=== PATIENT | female | born 1975 | race Caucasian/White ===

== ENCOUNTER 2016-09-13 23:11 | Emergency (ER) | payer OTHER ==
[~2016-09-13] VITALS: Ht 162.6 cm; Wt 117.9 kg
[~2016-09-13 23:11] MED LIST: ACYCLOVIR400 MG PO; ALAVERT10 MG PO; ALBUTEROL17 GM IH; ALLEGRA180 MG PO; ALLEGRA60 MG PO; ALLERGY MEDICAT25 M1 PO; AMBIEN10 M1 PO; AMBIEN10 MG PO; ASPIR 8181 M1 PO; ATARAX,VISTARIL50 MG PO; ATIVAN1 MG PO; AUGMENTIN875 MG PO; AZELASTINE205.5 MCG/ BOTH NARES; BENADRYL25 MG PO; BUSPAR10 MG PO; BUSPAR5 MG PO; CIPRO500 MG PO; CYCLOBENZAPRINE10 MG PO; Cipro PO; DENAVIR1.5 GM PO; DESYREL100 MG PO; DILAUDID4 MG PO; DOXYCYCLINE HY100 M3 PO; DOXYCYCLINE HY100 MG PO; EPI-PEN; EPIPEN ADU0.3 MG/0.3 IM; ESTRACE1 MG PO; ESTRADIOL1 MG PO; FENOFIBRATE160 M1 PO; FENOFIBRATE54 M1 PO; FIORICET WI1 CAPSULE PO; FLEXERIL10 MG PO; FLEXERIL5 MG PO; FLOVENT 11120 INHALA IH; FLOVENT 22120 INHALA IH; FUROSEMIDE20 MG PO; Flagyl PO; GLIPIZIDE5 M1 PO; HYDROCHLOROTH12.5 M3 PO; IMITREX100 MG PO; JANUVIA100 MG PO; K-DUR10 MEQ PO; KLONOPIN0.5 M1 PO; KLONOPIN1 M1 PO; KLOR-CON 1010 ME1 PO; LEVAQUIN750 MG PO; LIPITOR40 MG PO; LISINOPRIL10 MG PO; LORAZEPAM1 MG PO; MACROBID100 MG PO; MACRODANTIN50 MG PO; METFORMIN HCL500 MG PO; METRONIDAZOLE45 G1 TP; MICROZIDE12.5 M1 PO; MILLIPRED5 MG PO; MOBIC15 MG PO; MONTELUKAST SOD10 MG PO; MOTRIN800 MG PO; NAPROSYN500 MG PO; NAPROXEN500 MG PO; NASACORT; NASONEX17 GM BOTH NARES; OMEPRAZOLE20 M3 PO; ONDANSETRON HCL8 MG PO; OXYCODONE HCL15 MG PO; OXYCONTIN10 MG PO; PERCOCET 5/31 TABLET PO; PERIACTIN4 MG PO; PHENERGAN12.5 M1 PO; PHENERGAN25 MG PO; PHENERGAN25 MG PR; PREDNISONE20 MG PO; PREDNISONE5 M1 PO; PREDNISONE50 MG PO; PRILOSEC40 MG PO; PRISTIQ50 MG PO; PROAIR HFA8.5 GM IH; PROMETHAZINE HC25 M1 PO; PROMETHAZINE HC50 M1 PO; PROVENTIL2.5 MG/3 M IH; Pristiq PO; QUETIAPINE FUM200 MG PO; REGLAN10 MG PO; RESTORIL15 MG PO; ROBAXIN750 MG PO; ROXICODONE5 MG PO; SEROQUEL200 MG PO; SEROQUEL50 MG PO; SINGULAIR10 MG PO; STADOL NASAL2.5 ML NS; TALADINE150 MG PO; TEMAZEPAM15 MG PO; TOPAMAX100 MG PO; TOPAMAX25 MG PO; TOPAMAX50 MG PO; TOPIRAMATE50 MG PO; TORADOL10 MG PO; TRADJENTA5 MG PO; TRAMADOL HCL50 MG PO; TRAZODONE HCL100 MG PO; TRAZODONE HCL150 MG PO; TYLENOL WITH C1 EACH PO; VENTOLIN HFA18 GM IH; VOLTAREN 1% GE100 GM TP; VOLTAREN50 MG PO; XYZAL5 MG PO; ZADITOR5 ML BOTH EYES; ZANTAC150 MG PO; ZITHROMAX Z-PA250 MG PO; ZOFRAN4 MG PO; ZOFRAN8 M1 PO; ZOVIRAX400 MG PO; ZYRTEC10 MG PO; [UNRECOGNIZED DRUG - OTHER]
[2016-09-14 01:00] LABS: HEMATOCRIT 37.3 % (36.0-46.0); MCH 27.3 PG (29.0-34.0); MCV 82.7 FL (83-99); MEAN PLAT.VOLUME 10.4 uM^3 (9.5-12.4); PLATELET COUNT 258 K/uL (156-360); RBC DIS.WIDTH-CV 14.3 % (11.8-14.6); RBC DIS.WIDTH-SD 41.8 % (39-53); RED BLOOD COUNT 4.51 M/uL (3.80-5.20); WHITE BLOOD COUNT 7.6 K/uL (4.1-10.2)
[2016-09-14 01:11] LABS: CHLORIDE 107 mEq/L (99-109); POTASSIUM 3.6 mEq/L (3.7-5.4); SODIUM 138 mEq/L (136-147)
[2016-09-14 01:13] LABS: GLUCOSE 115 mg/dL (70-99)
[2016-09-14 01:15] LABS: ANION GAP 11 MEQ/L (2-14); TOTAL BILIRUBIN 0.3 mg/dL (0.0-1.0)
[2016-09-14 01:17] LABS: ALKALINE PHOSPHATASE 134 IU/L (3-129); GFR ESTIMATE (CALCULATED) > 59 mL/min/
[2016-09-14 01:18] LABS: UREA NITROGEN (BUN) 11 mg/dL (9-23)
[2016-09-14 01:19] LABS: DIRECT BILIRUBIN 0.1 mg/dL (0.0-0.3)
[2016-09-14 01:20] LABS: LIPASE 26 U/L (1.0-51.0)
[2016-09-14 01:20] LABS: TROP-I INTERPRETATION NEGATIVE; TROPONIN-I < 0.01 ng/mL (0.0-0.30)
[2016-09-14 03:10] LABS: ADD MIUA? YES; BILIRUBIN NEGATIVE; BLOOD NEGATIVE; COLOR YELLOW ((YELLOW)); GLUCOSE (STRIP) NEGATIVE; KETONES NEGATIVE; LEUKOCYTES MODERATE; NITRITE NEGATIVE; PROTEIN (STRIP) NEGATIVE; SPECIFIC GRAVITY 1.023 (1.000-1.030); UROBILINOGEN 0.2 MG/DL (0.2-1.0)
[2016-09-14 03:28] LABS: AMPHETAMINE NEGATIVE (500 ng/mL); BARBITURATES NEGATIVE (200 ng/mL); BENZODIAZEPINES PRESUMPTIVE POSITIVE (150 ng/mL); COCAINE NEGATIVE (150 ng/mL); INTERNAL CONTROLS VALID? YES; METHADONE NEGATIVE (200 ng/mL); METHAMPHETAMINE NEGATIVE (500 ng/mL); OPIATES (MORPHINE) NEGATIVE (100 ng/mL); OXYCODONE PRESUMPTIVE POSITIVE (100 ng/mL); PHENCYCLIDINE NEGATIVE (25 ng/mL); PROPOXYPHENE NEGATIVE (300 ng/mL); THC CANNABINOIDS NEGATIVE (50 ng/mL); TRICYCLIC ANTIDEPRESSANTS PRESUMPTIVE POSITIVE (300 ng/mL)
[2016-09-14 03:29] LABS: ADD MEDTOX COMMENT Y
[2016-09-14 03:41] LABS: BACTERIA 1+; CASTS NONE SEEN /LPF; CRYSTALS PRESENT; EPITHELIAL CELLS 1+; MUCUS NONE SEEN; RED BLOOD CELLS NONE SEEN /HPF (0-5); UCUL ADDED? NO; WHITE BLOOD CELLS 0-5 /HPF (0-5)
[2016-09-14 03:42] LABS: AMORPHOUS PHOSPHATE CRYSTALS 2+
[2016-09-14 04:36] LABS: BENZODIAZEPINES, URINE SCREEN POSITIVE (200 ng/mL)
[2016-09-14] MEDS ORDERED: PEPCID20 MG PO (04:37)
[2016-09-14 05:03] VITALS: BP 95/44
== END 2016-09-14 05:07 | disposition home or self-care (01) ==
LOC: EME 23:11
PROVIDERS: Emergency Medicine
DX: M54.5 Low back pain (principal); G89.29 Other chronic pain; K92.2 Gastrointestinal hemorrhage, unspecified; V49.40XD Driver injured in collision with unspecified motor vehicles in traffic accident, subsequent encounter; E11.9 Type 2 diabetes mellitus without complications; E78.5 Hyperlipidemia, unspecified; I10 Essential (primary) hypertension; Z88.2 Allergy status to sulfonamides; Z88.6 Allergy status to analgesic agent; Z88.1 Allergy status to other antibiotic agents
CPT/HCPCS: 72125; 72131; 74177; 80048; 80076; 81003; 83605; 83690; 83880; 84484; 84999; 85027; 85610; 85730; 86850; 86900; 86901; 93005; 99281; 99285; J1885; J7030; S0028

== ENCOUNTER 2016-10-04 20:39 | Observation (INO) | payer OTHER ==
[~2016-10-04] VITALS: Ht 162.6 cm; Wt 115.4 kg
[~2016-10-04 20:39] MED LIST changes: +PEPCID20 MG PO
[2016-10-04 21:15] LABS: HEMATOCRIT 35.5 % (36.0-46.0); MCH 26.9 PG (29.0-34.0); MCHC 32.7 G/DL (30.0-36.0); MCV 82.4 FL (83-99); MEAN PLAT.VOLUME 9.7 uM^3 (9.5-12.4); PLATELET COUNT 262 K/uL (156-360); RBC DIS.WIDTH-CV 13.1 % (11.8-14.6); RBC DIS.WIDTH-SD 38.4 % (39-53); RED BLOOD COUNT 4.31 M/uL (3.80-5.20); WHITE BLOOD COUNT 8.6 K/uL (4.1-10.2)
[2016-10-04 21:29] LABS: CHLORIDE 101 mEq/L (99-109); POTASSIUM 3.9 mEq/L (3.7-5.4); SODIUM 139 mEq/L (136-147)
[2016-10-04 21:30] LABS: GLUCOSE 140 mg/dL (70-99)
[2016-10-04 21:32] LABS: ANION GAP 9 MEQ/L (2-14)
[2016-10-04 21:34] LABS: GFR ESTIMATE (CALCULATED) > 59 mL/min/
[2016-10-04 21:35] LABS: UREA NITROGEN (BUN) 8 mg/dL (9-23)
[2016-10-04 21:37] LABS: LIPASE 11 U/L (1.0-51.0)
[2016-10-04 21:39] LABS: TROP-I INTERPRETATION NEGATIVE; TROPONIN-I 0.13 ng/mL (0.0-0.30)
[2016-10-04] MEDS ORDERED: TRAZODONE HCL150 MG PO (23:16)
[2016-10-04] MEDS ORDERED: SEROQUEL300 MG PO (23:16)
[2016-10-04] MEDS ORDERED: FUROSEMIDE40 MG PO (23:18)
[2016-10-04] MEDS ORDERED: ONDANSETRON ODT8 MG PO (23:19)
[2016-10-04] MEDS ORDERED: LYRICA100 MG PO (23:21)
[2016-10-04] MEDS ORDERED: DULOXETINE HCL60 MG PO (23:21)
[2016-10-04] MEDS ORDERED: CEFTIN500 MG PO (23:21)
[2016-10-04] MEDS ORDERED: HYDROMORPHONE HC4 MG PO (23:22)
[2016-10-04] MEDS ORDERED: MELOXICAM15 MG PO (23:22)
[2016-10-04] MEDS ORDERED: DIAZEPAM5 MG PO (23:23)
[2016-10-05 02:38] VITALS: BP 153/99
[2016-10-05 06:46] LABS: TROP-I INTERPRETATION NEGATIVE
[2016-10-05 12:11] LABS: POINT-OF-CARE METER ID UU14162513
[2016-10-05 12:22] VITALS: BP 115/60
[2016-10-05 13:00] LABS: TROP-I INTERPRETATION NEGATIVE; TROPONIN-I 0.08 ng/mL (0.0-0.30)
== END 2016-10-05 16:30 | disposition home or self-care (01) ==
LOC: EME → EDBD 20:39 → EME 20:39 → EDOF 10-05 00:34 → 5WEST 10-05 02:15
PROVIDERS: Hospitalist
DX: R51 Headache (principal); R10.84 Generalized abdominal pain; R11.2 Nausea with vomiting, unspecified; R07.89 Other chest pain; E11.9 Type 2 diabetes mellitus without complications; I10 Essential (primary) hypertension; E78.5 Hyperlipidemia, unspecified; K21.9 Gastro-esophageal reflux disease without esophagitis; G40.909 Epilepsy, unspecified, not intractable, without status epilepticus; G89.4 Chronic pain syndrome; F11.10 Opioid abuse, uncomplicated; E66.01 Morbid (severe) obesity due to excess calories; Z68.41 Body mass index [BMI] 40.0-44.9, adult
CPT/HCPCS: 70450; 71020; 74176; 80048; 82948; 83690; 84484; 85027; 93005; 99281; 99285; G0378; J1815; J2310; J2405; J3010; J7030

== ENCOUNTER 2017-02-26 05:30 | Emergency (ER) | payer OTHER ==
[~2017-02-26] VITALS: Ht 162.6 cm; Wt 112.0 kg
[~2017-02-26 05:30] MED LIST changes: +CEFTIN500 MG PO; +DIAZEPAM5 MG PO; +DULOXETINE HCL60 MG PO; +FUROSEMIDE40 MG PO; +HYDROMORPHONE HC4 MG PO; +LYRICA100 MG PO; +MELOXICAM15 MG PO; +ONDANSETRON ODT8 MG PO; +SEROQUEL300 MG PO
[2017-02-26 07:24] LABS: HEMATOCRIT 38.9 % (36.0-46.0); MCH 26.3 PG (29.0-34.0); MCHC 31.9 G/DL (30.0-36.0); MCV 82.6 FL (83-99); MEAN PLAT.VOLUME 9.9 uM^3 (9.5-12.4); PLATELET COUNT 256 K/uL (156-360); RBC DIS.WIDTH-CV 13.2 % (11.8-14.6); RBC DIS.WIDTH-SD 39.2 % (39-53); RED BLOOD COUNT 4.71 M/uL (3.80-5.20)
[2017-02-26 07:42] LABS: CHLORIDE 106 mEq/L (99-109); POTASSIUM 3.3 mEq/L (3.7-5.4); SODIUM 140 mEq/L (136-147)
[2017-02-26 07:44] LABS: GLUCOSE 122 mg/dL (70-99)
[2017-02-26 07:46] LABS: ANION GAP 10 MEQ/L (2-14); TOTAL BILIRUBIN 0.4 mg/dL (0.0-1.0)
[2017-02-26 07:48] LABS: ALKALINE PHOSPHATASE 135 IU/L (3-129); GFR ESTIMATE (CALCULATED) > 59 mL/min/
[2017-02-26 07:49] LABS: UREA NITROGEN (BUN) 6 mg/dL (9-23)
[2017-02-26 08:25] LABS: LIPASE 26 U/L (1.0-51.0)
[2017-02-26 09:54] LABS: ADD MIUA? YES; BILIRUBIN NEGATIVE; BLOOD NEGATIVE; COLOR YELLOW ((YELLOW)); GLUCOSE (STRIP) NEGATIVE; KETONES NEGATIVE; LEUKOCYTES NEGATIVE; NITRITE NEGATIVE; PROTEIN (STRIP) NEGATIVE; SPECIFIC GRAVITY 1.008 (1.000-1.030); UROBILINOGEN 0.2 MG/DL (0.2-1.0)
[2017-02-26 09:57] LABS: BACTERIA NONE SEEN /HPF; EPITHELIAL CELLS 1+ /HPF; MUCUS TRACE /LPF; RED BLOOD CELLS 0-5 /HPF (0-5); UCUL ADDED? NO; WHITE BLOOD CELLS 0-5 /HPF (0-5)
[2017-02-26 10:04] LABS: ADD MEDTOX COMMENT Y; AMPHETAMINE NEGATIVE (500 ng/mL); BARBITURATES NEGATIVE (200 ng/mL); BENZODIAZEPINES PRESUMPTIVE POSITIVE (150 ng/mL); COCAINE NEGATIVE (150 ng/mL); INTERNAL CONTROLS VALID? YES; METHADONE NEGATIVE (200 ng/mL); METHAMPHETAMINE NEGATIVE (500 ng/mL); OPIATES (MORPHINE) NEGATIVE (100 ng/mL); OXYCODONE NEGATIVE (100 ng/mL); PHENCYCLIDINE NEGATIVE (25 ng/mL); PROPOXYPHENE NEGATIVE (300 ng/mL); THC CANNABINOIDS NEGATIVE (50 ng/mL); TRICYCLIC ANTIDEPRESSANTS NEGATIVE (300 ng/mL)
[2017-02-26] MEDS ORDERED: ZOFRAN4 MG PO (10:13)
[2017-02-26 10:51] LABS: BENZODIAZEPINES, URINE SCREEN POSITIVE (200 ng/mL)
[2017-02-26 10:54] VITALS: BP 118/71
== END 2017-02-26 11:00 | disposition home or self-care (01) ==
LOC: EME 05:30
PROVIDERS: Emergency Medicine
DX: R10.13 Epigastric pain (principal); R11.2 Nausea with vomiting, unspecified; R19.7 Diarrhea, unspecified; I10 Essential (primary) hypertension; E78.5 Hyperlipidemia, unspecified; E11.9 Type 2 diabetes mellitus without complications; Z79.84 Long term (current) use of oral hypoglycemic drugs; Z79.82 Long term (current) use of aspirin; Z90.49 Acquired absence of other specified parts of digestive tract; Z87.891 Personal history of nicotine dependence
CPT/HCPCS: 80053; 81003; 83690; 84999; 85027; 87493; 99281; 99284; J1885; J2405

== ENCOUNTER 2017-05-08 19:16 | Emergency (ER) | payer OTHER ==
[~2017-05-08] VITALS: Ht 160 cm; Wt 108.6 kg
[2017-05-08 20:05] LABS: ADD MIUA? YES; BILIRUBIN NEGATIVE; BLOOD SMALL; COLOR YELLOW ((YELLOW)); GLUCOSE (STRIP) NEGATIVE; KETONES NEGATIVE; LEUKOCYTES TRACE; NITRITE NEGATIVE; PROTEIN (STRIP) NEGATIVE; SPECIFIC GRAVITY 1.011 (1.000-1.030); UROBILINOGEN 0.2 MG/DL (0.2-1.0)
[2017-05-08 20:14] LABS: BACTERIA RARE /HPF; EPITHELIAL CELLS RARE /HPF; MUCUS TRACE /LPF; RED BLOOD CELLS 0-5 /HPF (0-5); UCUL ADDED? YES
[2017-05-08 20:24] LABS: HEMATOCRIT 41.4 % (36.0-46.0); MCHC 33.6 G/DL (30.0-36.0); MCV 80.4 FL (83-99); MEAN PLAT.VOLUME 9.7 uM^3 (9.5-12.4); PLATELET COUNT 271 K/uL (156-360); RBC DIS.WIDTH-CV 13.6 % (11.8-14.6); RBC DIS.WIDTH-SD 39.8 % (39-53); RED BLOOD COUNT 5.15 M/uL (3.80-5.20); WHITE BLOOD COUNT 8.2 K/uL (4.1-10.2)
[2017-05-08 20:36] LABS: CHLORIDE 104 mEq/L (99-109); POTASSIUM 3.7 mEq/L (3.7-5.4); SODIUM 142 mEq/L (136-147)
[2017-05-08 20:39] LABS: GLUCOSE 129 mg/dL (70-99)
[2017-05-08 20:40] LABS: ANION GAP 13 MEQ/L (2-14)
[2017-05-08 20:41] LABS: TOTAL BILIRUBIN 0.6 mg/dL (0.0-1.0)
[2017-05-08 20:42] LABS: ALKALINE PHOSPHATASE 125 IU/L (3-129); GFR ESTIMATE (CALCULATED) > 59 mL/min/
[2017-05-08 20:44] LABS: UREA NITROGEN (BUN) 6 mg/dL (9-23)
[2017-05-08 20:46] LABS: LIPASE 19 U/L (1.0-51.0)
[2017-05-08] MEDS ORDERED: VANCOCIN HCL125 MG PO (22:13)
[2017-05-08] MEDS ORDERED: PERCOCET 5/31 TABLET PO (22:15)
[2017-05-08] MEDS ORDERED: REGLAN10 MG PO (22:19)
[2017-05-08 22:45] VITALS: BP 134/67
== END 2017-05-08 22:46 | disposition home or self-care (01) ==
LOC: EME 19:16 → RME 19:16
PROVIDERS: Physician Assistant
DX: A04.7 Enterocolitis due to Clostridium difficile (principal); N39.0 Urinary tract infection, site not specified; K76.0 Fatty (change of) liver, not elsewhere classified; I10 Essential (primary) hypertension; E78.5 Hyperlipidemia, unspecified; E11.9 Type 2 diabetes mellitus without complications; Z79.84 Long term (current) use of oral hypoglycemic drugs; Z79.82 Long term (current) use of aspirin; Z90.49 Acquired absence of other specified parts of digestive tract; Z90.710 Acquired absence of both cervix and uterus; Z87.891 Personal history of nicotine dependence
CPT/HCPCS: 74177; 80053; 81003; 83690; 85027; 87077; 87086; 87186; 87493; 99281; 99285; J2405; J3010; J7030

== ENCOUNTER 2017-09-21 17:26 | Emergency (ER) | payer OTHER ==
[~2017-09-21] VITALS: Ht 162.6 cm; Wt 103.0 kg
[~2017-09-21 17:26] MED LIST changes: +VANCOCIN HCL125 MG PO
[2017-09-21 21:50] VITALS: BP 131/89
== END 2017-09-21 21:49 | disposition home or self-care (01) ==
LOC: EME 17:26
DX: S13.9XXA Sprain of joints and ligaments of unspecified parts of neck, initial encounter (principal); S39.012A Strain of muscle, fascia and tendon of lower back, initial encounter; V49.40XA Driver injured in collision with unspecified motor vehicles in traffic accident, initial encounter; Y92.410 Unspecified street and highway as the place of occurrence of the external cause; Z98.1 Arthrodesis status; K21.9 Gastro-esophageal reflux disease without esophagitis; J45.909 Unspecified asthma, uncomplicated; I10 Essential (primary) hypertension; E78.5 Hyperlipidemia, unspecified; E11.9 Type 2 diabetes mellitus without complications; G43.909 Migraine, unspecified, not intractable, without status migrainosus; R56.9 Unspecified convulsions; F32.9 Major depressive disorder, single episode, unspecified; F41.9 Anxiety disorder, unspecified; Z87.891 Personal history of nicotine dependence; Z90.49 Acquired absence of other specified parts of digestive tract; Z88.1 Allergy status to other antibiotic agents; Z88.2 Allergy status to sulfonamides; Z88.5 Allergy status to narcotic agent; Z88.8 Allergy status to other drugs, medicaments and biological substances
CPT/HCPCS: 71046; 72100; 72125; 99281; 99284; J2270

== ENCOUNTER 2017-11-13 13:18 | Emergency (ER) | payer OTHER ==
[~2017-11-13] VITALS: Ht 162.6 cm; Wt 101.1 kg
[2017-11-13 14:54] LABS: HEMATOCRIT 38.9 % (36.0-46.0); HEMOGLOBIN 12.7 G/DL (11.9-15.5); MCH 27.6 PG (29.0-34.0); MCHC 32.6 G/DL (30.0-36.0); MCV 84.6 FL (83-99); PLATELET COUNT 203 K/uL (156-360); RBC DIS.WIDTH-CV 13.2 % (11.8-14.6); RBC DIS.WIDTH-SD 40.7 % (39-53); WHITE BLOOD COUNT 6.3 K/uL (4.1-10.2)
[2017-11-13 15:04] LABS: ALBUMIN 3.6 g/dL (3.2-4.8)
[2017-11-13 15:05] LABS: CHLORIDE 103 mEq/L (99-109); POTASSIUM 3.6 mEq/L (3.7-5.4); SODIUM 143 mEq/L (136-147)
[2017-11-13 15:07] LABS: GLUCOSE 93 mg/dL (70-99)
[2017-11-13 15:09] LABS: TOTAL BILIRUBIN 0.5 mg/dL (0.0-1.0)
[2017-11-13 15:10] LABS: ALKALINE PHOSPHATASE 112 IU/L (3-129)
[2017-11-13 15:11] LABS: CREATININE 0.7 mg/dL (0.6-1.3); GFR ESTIMATE (CALCULATED) > 59 mL/min/
[2017-11-13 15:12] LABS: AST (GOT) 59 IU/L (2-34); UREA NITROGEN (BUN) 5 mg/dL (9-23)
[2017-11-13 15:13] LABS: ALT (GPT) 38 IU/L (3-49)
[2017-11-13 15:22] LABS: TROP-I INTERPRETATION NEGATIVE; TROPONIN-I < 0.01 ng/mL (0.0-0.30)
[2017-11-13 15:23] LABS: QUANTITATIVE HCG < 4.0 MIU/ML
[2017-11-13 17:23] VITALS: BP 145/87
== END 2017-11-13 17:29 | disposition home or self-care (01) ==
LOC: EME 13:18
PROVIDERS: Emergency Medicine
DX: R07.89 Other chest pain (principal); R55 Syncope and collapse; M25.572 Pain in left ankle and joints of left foot; M25.552 Pain in left hip; M79.672 Pain in left foot; I10 Essential (primary) hypertension; I47.1 Supraventricular tachycardia; E11.9 Type 2 diabetes mellitus without complications; E78.5 Hyperlipidemia, unspecified; G89.29 Other chronic pain; J45.909 Unspecified asthma, uncomplicated; R56.9 Unspecified convulsions; F32.9 Major depressive disorder, single episode, unspecified; K21.9 Gastro-esophageal reflux disease without esophagitis; F43.10 Post-traumatic stress disorder, unspecified; Z88.2 Allergy status to sulfonamides; Z88.5 Allergy status to narcotic agent; Z87.891 Personal history of nicotine dependence
CPT/HCPCS: 73502; 73610; 73630; 80053; 84484; 84702; 85027; 85379; 93005; 99281; 99285; J1885; J7030

== ENCOUNTER 2018-02-25 21:02 | Emergency (ER) | payer OTHER ==
[~2018-02-25] VITALS: Ht 162.6 cm; Wt 107.4 kg
[2018-02-25] MEDS ORDERED: EPIPEN ADU0.3 MG/0.3 IM (22:06)
[2018-02-25 22:39] VITALS: BP 111/77
== END 2018-02-25 22:47 | disposition home or self-care (01) ==
LOC: EME 21:02
DX: S61.041A Puncture wound with foreign body of right thumb without damage to nail, initial encounter (principal); X58.XXXA Exposure to other specified factors, initial encounter; Y92.009 Unspecified place in unspecified non-institutional (private) residence as the place of occurrence of the external cause; F32.9 Major depressive disorder, single episode, unspecified; F42.9 Obsessive-compulsive disorder, unspecified; Z98.1 Arthrodesis status; Z88.5 Allergy status to narcotic agent; Z88.2 Allergy status to sulfonamides; Z88.1 Allergy status to other antibiotic agents; Z88.8 Allergy status to other drugs, medicaments and biological substances
CPT/HCPCS: 73140; 99281; 99284